=== PATIENT | female | born 1985 | race African-American/Black ===

== ENCOUNTER 2019-05-26 17:15 | Emergency (ER) | payer MEDICAID, OTHER ==
[~2019-05-26] VITALS: Ht 160 cm; Wt 92.0 kg
[~2019-05-26 17:15] MED LIST: HYDR-519
[2019-05-26 20:10] VITALS: BP 113/68
== END 2019-05-26 20:32 | disposition home or self-care (01) ==
LOC: ER 17:15
DX: M25.461 Effusion, right knee (principal); F12.90 Cannabis use, unspecified, uncomplicated
CPT/HCPCS: 73562; 81025; 99283

== ENCOUNTER 2019-10-24 11:16 | Emergency (ER) | payer MEDICAID ==
[~2019-10-24] VITALS: Ht 165.1 cm; Wt 97.0 kg
[2019-10-24] MEDS ORDERED: IBUPROFEN 800MG TABLET PO ONE (13:15)
[2019-10-24 14:30] VITALS: BP 137/83
== END 2019-10-24 15:11 | disposition home or self-care (01) ==
LOC: ER 11:16
DX: S93.492A Sprain of other ligament of left ankle, initial encounter (principal); S93.692A Other sprain of left foot, initial encounter; W10.8XXA Fall (on) (from) other stairs and steps, initial encounter; Y93.89 Activity, other specified; Y92.89 Other specified places as the place of occurrence of the external cause; Y99.8 Other external cause status; R45.6 Violent behavior; F31.9 Bipolar disorder, unspecified; F20.9 Schizophrenia, unspecified; F12.10 Cannabis abuse, uncomplicated; Z88.6 Allergy status to analgesic agent; Z88.2 Allergy status to sulfonamides; Z88.5 Allergy status to narcotic agent; Z98.890 Other specified postprocedural states
CPT/HCPCS: 29515; 73610; 73630; 99283